=== PATIENT | male | born 1960 | race Caucasian/White ===

== ENCOUNTER 2023-06-06 07:30 | Outpatient (CLI) | payer MEDICARE | END 2023-06-06 07:31 | disposition home or self-care (01) | LOC: CSHMRI 07:30 | PROVIDERS: ATTEND Urology | DX: R97.20 Elevated prostate specific antigen [PSA] (principal); Z90.79 Acquired absence of other genital organ(s); Z80.42 Family history of malignant neoplasm of prostate; Z98.890 Other specified postprocedural states | CPT/HCPCS: 72197 ==

== ENCOUNTER 2023-07-17 08:31 | Outpatient (CLI) | payer MEDICARE | END 2023-07-17 08:32 | disposition home or self-care (01) | LOC: CSHCT 08:31 | PROVIDERS: ATTEND Urology | DX: R97.20 Elevated prostate specific antigen [PSA] (principal); R31.29 Other microscopic hematuria; N32.89 Other specified disorders of bladder | CPT/HCPCS: 74178; 82565 ==